=== PATIENT | female | born 2000 | race African-American/Black ===

== ENCOUNTER 2024-04-19 19:33 | Emergency (ER) | payer OTHER, SELFPAY ==
[2024-04-19 19:38] VITALS: BP 121/83; BP 141/88; PULSE 66; PULSE 86; RESP 16; TEMP 36.9; O2SAT 100; BMI 22.6
--- NOTE | 2024-04-19 19:44 | ED.ALLEREA ---
HPI - Allergic Reaction General Stated complaint: ALLERGIC REACTION Time Seen by Provider: 04/19/24 19:36 Source: patient and EMS Mode of arrival: EMS Limitations: no limitations History of Present Illness ED Provider: Dr. Mely Brady HPI narrative: Patient comes to the emergency room via ambulance from [facility]. Patient states that earlier today she was eating some food and did not realize that it had not seen it. Patient known to have allergic reaction to peanuts. Patient states that she has started feeling itchiness in her throat, no hives, no difficulty breathing. 911 was called. By the time that 911 arrived, patient was asymptomatic. Patient states that at this time on arrival she feels a bit ?weird ?. Patient denies any other symptoms. Patient did not take any medication prior to calling 911, EMS did not give her any meds either. Related Data Allergies Allergy/AdvReac Type Severity Reaction Status Date / Time peanut Allergy Hives Verified 04/19/24 19:40 Review of Systems Review of Systems: Constitutional : No Weight loss, No Fever, No Chills, No Night Sweats, No Fatigue, No Malaise ENT/Mouth : No Hearing loss, No Ear Pain, No Nasal Congestion, No Sinus Pain, No Hoarseness, earlier today had scratchy throat sensation, No sore throat, No Rhinorrhea, No Swallowing Difficulty Eyes: No Eye Pain, No Swelling, No Redness, No Foreign Body, No Discharge, No Vision Changes Cardiovascular : No Chest Pain, No SOB, No Dyspnea on Exertion, No Orthopnea, No Edema, No Palpitations Respiratory : No Cough, No Sputum, No Wheezing, No Smoke Exposure, No Dyspnea Gastrointestinal : No Nausea, No Vomiting, No Diarrhea, No Constipation, No abdominal Pain, No Hematochezia, No Melena Genitourinary : no irregular bleeding, No Dysuria, No Urinary Frequency, No Hematuria, No Urinary Incontinence, No Urgency, No Flank Pain, No Urinary Flow Changes, No Hesitancy Musculoskeletal : No joint pain, No Myalgias, No Joint Swelling Skin : No Skin Lesions, No rash Neuro : No Weakness, No Numbness, No Paresthesias, No Loss of Consciousness, No Dizziness, No Headache Psych : No Anxiety/Panic, No Depression, No SI/HI/AH/VH, No Social Issues, Heme/Lymph: No Bruising, No Bleeding,No Lymphadenopathy Endocrine : No Polyuria, No Polydipsia, No Temperature Intolerance Physical Exam ED Const Other: Appearance: Alert. Oriented X3. No acute distress. Well-appearing Eyes: Pupils equal, round and reactive to light. ENT: Pharynx normal. Neck: Normal inspection. Neck supple. No lymph nodes noted. No crepitus CVS: Normal heart rate and rhythm. Pulses normal. Normal S1 and S2 Respiratory: No respiratory distress. Breath sounds normal. No Wheezing. No rales Abdomen: Soft and nontender. No rigidity. No distention. Skin: Skin warm and dry. Normal skin color. Normal skin turgor. No hives Extremities: No lower extremity edema. No Lacerations. No Rash Neuro: Oriented X 3. No motor deficit. No sensory deficit. Moving all extremities. No slurred speech. CN 2 through 12 grossly intact Psych: calm, cooperative, normal affect Medical Decision Making Medical Decision Making MDM Narrative: Given patient's symptoms from earlier today, patient was empirically given a dose of p.o. diphenhydramine, famotidine and prednisone. -patient is otherwise asymptomatic. Oxygen saturation 100% on room air, physical exam normal, no signs of angioedema, no wheezing, no hives Discharge Plan Discharge Clinical Impression: Allergic reaction Patient Disposition: Home, Self-Care Instructions: General Allergic Reaction (ED) Additional Instructions: Please follow-up with your primary care physician tomorrow. If you have any worsening or new symptoms, please return to the emergency room or call 911
[2024-04-19] MEDS: predniSONE 20 MG TABLET 60 MG PO (20:01)
[2024-04-19] MEDS: Famotidine 20 MG TABLET PO (20:01)
[2024-04-19] MEDS: diphenhydrAMINE HCl 12.5 MG/5 ML LIQUID 25 MG PO (20:01)
[2024-04-19 20:40] VITALS: BP 138/79; PULSE 84; RESP 16; TEMP 36.7; O2SAT 100
== END 2024-04-19 20:41 | disposition home or self-care (01) ==
PROVIDERS: Emergency Provider Emergency Medicine
DX: T78.1XXA Other adverse food reactions, not elsewhere classified, initial encounter (principal); L29.8 Other pruritus; X58.XXXA Exposure to other specified factors, initial encounter
CPT/HCPCS: 99283; 99284